=== PATIENT | male | born 1955 ===

== ENCOUNTER 2020-05-12 18:22 | Outpatient (REF) | payer OTHER, SELFPAY ==
[2020-05-12 22:06] LABS: HCT 45.7 % (40.0-50.0); HGB 14.2 g/dL (13.5-17.5); MCHC 31.1 % (32.0-36.0); MCV 93.5 fL (80-95); MPV 10.9 fL (8.0-11.0); Platelet Count 284 10^3/uL (130-400); RBC 4.89 10^6/uL (4.36-5.78); RDW-SD 48.5 fL
[2020-05-12 22:32] LABS: ALT 28 U/L (16-63); AST 19 U/L (15-37); Alkaline Phosphatase 64 U/L (46-116); Anion Gap 7.1 mmol/L (3-11); BUN 26 mg/dL (7-18); Bilirubin, Total 0.6 mg/dL (0.2-1.0); CO2 32.9 mmol/L (21.0-32.0); CREATININE 1.37 mg/dL (0.70-1.30); Calcium 9.5 mg/dL (8.5-10.1); Chloride 97 mmol/L (98-107); Estimated GFR 51.99 (mL/min/1.73m2); Glucose 88 mg/dL (74-106); Potassium 4.9 mmol/L (3.5-5.1); Sodium 137 mmol/L (136-145); Total Protein 7.3 g/dL (6.4-8.2)
== END 2020-05-12 18:42 ==
LOC: NCHCN 18:22
PROVIDERS: PCP Nurse Practitioner Community Health; Visit Provider Nurse Practitioner Community Health
DX: E11.9 Type 2 diabetes mellitus without complications (principal); I10 Essential (primary) hypertension; R23.3 Spontaneous ecchymoses; Z79.899 Other long term (current) drug therapy
CPT/HCPCS: 80053; 85027

== ENCOUNTER 2020-05-19 18:35 | Outpatient (REF) | payer OTHER, SELFPAY ==
[2020-05-19 22:03] LABS: Anion Gap 9.1 mmol/L (3-11); BUN 22 mg/dL (7-18); CO2 29.9 mmol/L (21.0-32.0); CREATININE 1.32 mg/dL (0.70-1.30); Calcium 9.6 mg/dL (8.5-10.1); Chloride 96 mmol/L (98-107); Estimated GFR 54.27 (mL/min/1.73m2); Glucose 127 mg/dL (74-106); Potassium 4.6 mmol/L (3.5-5.1); Sodium 135 mmol/L (136-145)
[2020-05-19 22:05] LABS: Abs Immature Grans 0.03 10^3/uL (0.0-0.06); Absolute Basophil Count 0.07 10^3/uL (0.0-0.2); Absolute Eosinophil Count 0.27 10^3/uL (0.0-0.7); Absolute Lymphocyte Count 0.95 10^3/uL (1.2-3.4); Absolute Neutrophil Count 7.28 10^3/uL (1.2-6.7); Basophils % 0.8; Eosinophils % 2.9; HCT 45.1 % (40.0-50.0); HGB 13.9 g/dL (13.5-17.5); Immature Grans % 0.3; Lymphocytes % 10.2; MCH 29.4 pg (27.0-33.0); MCHC 30.8 % (32.0-36.0); MCV 95.3 fL (80-95); MPV 10.9 fL (8.0-11.0); Monocytes % 7.5; Neutrophils % 78.3; Nucleated RBC 0 %; Platelet Count 270 10^3/uL (130-400); RBC 4.73 10^6/uL (4.36-5.78); RDW 14.1 % (11.8-14.1); RDW-SD 49.5 fL
== END 2020-05-19 18:55 ==
LOC: NCHCN 18:35
PROVIDERS: PCP Nurse Practitioner Community Health; Visit Provider Nurse Practitioner Community Health
DX: R23.3 Spontaneous ecchymoses (principal); R79.89 Other specified abnormal findings of blood chemistry; Z79.899 Other long term (current) drug therapy
CPT/HCPCS: 80048; 85025

== ENCOUNTER 2020-06-02 19:49 | Outpatient (REF) | payer OTHER, SELFPAY ==
--- NOTE | 2020-06-02 14:30 | SKI_PTH ---
PATIENT: Bola Lagunas LOC: [facility] U#:[id number] AGE/SX: 65/M ROOM: RE06/02/[address]: Rosemary Luna : 1955 BED: DIS: 06/02/2020 SPEC #: [id number] RECD: 06/03/20 12:31 STATUS: CHOLO PITTS #: [id number] CRISTI: 06/02/20 14:[address]: Rosemary Luna DEPT: Surgical Specimen RECD BY: Kyleigh Vázquez Tissues: 1 - SKIN BIOPSY(SHAVE/PUNCH) Procedures: SKIN LEVEL 4 Comments: [id number]
[2020-06-04 09:36] LABS: Cyclic Citrullinated Peptide <2.5 U/mL (<5.0)
[2020-06-08 12:44] LABS: dsDNA Ab, IgG <12.3 IU/mL (<30.0)
[2020-06-08 13:01] LABS: SS-A Antibody 1.6 Units (<20.0)
[2020-06-08 13:04] LABS: SS-B (La) Ab, IgG 1.5 Units (<20.0)
[2020-06-08 16:16] LABS: RNP Ab, IgG 1.8 Units (<20.0)
== END 2020-06-02 20:09 ==
LOC: NCHCN 19:49
PROVIDERS: PCP Nurse Practitioner Community Health; Visit Provider Nurse Practitioner Community Health
DX: R23.3 Spontaneous ecchymoses (principal); R76.0 Raised antibody titer; I78.1 Nevus, non-neoplastic
CPT/HCPCS: 86200; 86225; 86235; 88305

== ENCOUNTER 2021-07-22 23:12 | Outpatient (REF) | payer OTHER, SELFPAY ==
[2021-07-22 21:09] LABS: HCT 44.8 % (40.0-50.0); HGB 12.7 g/dL (13.5-17.5); MCH 25.1 pg (27.0-33.0); MCHC 28.3 % (32.0-36.0); MCV 88.7 fL (80-95); MPV 10.2 fL (8.0-11.0); Platelet Count 314 10^3/uL (130-400); RBC 5.05 10^6/uL (4.36-5.78); RDW 15.8 % (11.8-14.1); RDW-SD 50.1 fL; WBC 9.13 10^3/uL (4.4-10.8)
[2021-07-22 21:28] LABS: ALT 23 U/L (16-63); AST 17 U/L (15-37); Albumin 3.7 g/dL (3.4-5.0); Alkaline Phosphatase 70 U/L (46-116); Anion Gap 3.9 mmol/L (3-11); BUN 17 mg/dL (7-18); Bilirubin, Total 0.6 mg/dL (0.2-1.0); CO2 34.1 mmol/L (21.0-32.0); CREATININE 1.2 mg/dL (0.70-1.30); Calcium 9.1 mg/dL (8.5-10.1); Chloride 96 mmol/L (98-107); Glucose 75 mg/dL (74-106); Potassium 5.1 mmol/L (3.5-5.1); Sodium 134 mmol/L (136-145); TSH 1.35 uIU/mL (0.36-3.74); Total Protein 6.9 g/dL (6.4-8.2)
[2021-07-22 21:37] LABS: COMMENT (LAB VIEW ONLY) 34.97 mg/dL
== END 2021-07-22 23:13 | disposition home or self-care (01) ==
LOC: LBN 23:12
PROVIDERS: PCP Nurse Practitioner Community Health; Visit Provider Registered Nurse
DX: E11.9 Type 2 diabetes mellitus without complications (principal); I10 Essential (primary) hypertension; G47.33 Obstructive sleep apnea (adult) (pediatric); Z68.42 Body mass index [BMI] 45.0-49.9, adult
CPT/HCPCS: 80053; 85027; 82043; 82570; 84443

== ENCOUNTER 2021-10-20 18:22 | Outpatient (REF) | payer MEDICARE, SELFPAY ==
[2021-10-20 16:29] LABS: Hemoglobin A1C 6.7 % (<5.7)
[2021-10-20 16:38] LABS: Calculated LDL 84 mg/dL (<100); Cholesterol 152 mg/dL (<200); HDL Cholesterol 46 mg/dL (40-60); Triglyceride 110 mg/dL (<150)
== END 2021-10-20 18:23 | disposition home or self-care (01) ==
LOC: NCHCN 18:22
PROVIDERS: PCP Nurse Practitioner Community Health; Visit Provider Registered Nurse
DX: E11.9 Type 2 diabetes mellitus without complications (principal); E78.5 Hyperlipidemia, unspecified; J44.9 Chronic obstructive pulmonary disease, unspecified
CPT/HCPCS: 80061; 83036

== ENCOUNTER 2022-05-05 16:39 | Outpatient (REF) | payer MEDICARE, SELFPAY ==
[2022-05-05 14:25] LABS: HCT 43.9 % (40.0-50.0); HGB 14.1 g/dL (13.5-17.5); MCHC 32.1 % (32.0-36.0); MCV 97 fL (80-95); MPV 10.5 fL (8.0-11.0); Platelet Count 285 10^3/uL (130-400); RBC 4.55 10^6/uL (4.36-5.78); RDW 13.1 % (11.8-14.1); RDW-SD 47.1 fL; WBC 9.04 10^3/uL (4.4-10.8)
[2022-05-05 14:28] LABS: Anion Gap 8.3 mmol/L (3-11); BUN 23 mg/dL (7-18); CO2 29.7 mmol/L (21.0-32.0); CREATININE 1.2 mg/dL (0.70-1.30); Calcium 9.6 mg/dL (8.5-10.1); Chloride 98 mmol/L (98-107); Estimated GFR 65.87 (mL/min/1.73m2); Glucose 104 mg/dL (74-106); Potassium 4.7 mmol/L (3.5-5.1); Sodium 136 mmol/L (136-145)
--- OUTSIDE RECORDS SUMMARY | 2022-05-05 16:42 | XMS_ITS | CCD ---
:1955 Author Care Team Providers Name Role Phone LUCIANA ROBLES Attending Physician Unavailable Vital Signs Unknown or Not Available. Allergies Unknown or Not Available. Procedures Unknown or Not Available. History of Immunizations Unknown or Not Available. Problems Problem Code Start Date Resolved Date Status Diabetes 2 [id number] Active Hypertension 16930510 Active Obstructive sleep apnea 21320520 Acti ve COPD with exacerbation 704808326 Activ e Hypoxemia 794437833 Active Hypercapnia 17872823 Active Psoriasis 3097486 08/19/2021 Resolved Hyperlipidemia 02581054 08/19/2021 Resolved Ventral hernia 281906202 08/19/2021 Resolved Anemia 270343971 08/19/2021 Resolved Hydrocele 46781511 08/19/2021 Resolved Chronic obstructive pulmonary disease 83924610 Resolved Results BASIC METABOLIC PANEL (BMP) - Collect Da te/Time: 11/17/2020 13:05 Test Name Code Test Result Test Units Test Ref Range GLUCOSE 2345-7 128 mg/dL L=70 H=116 BUN 3094-0 21 mg/dL L=6 H=25 CREATININE 2160-0 1.02 mg/dL L=0.67 H=1.17 SODIUM SERUM 2951-2 135 mmol/L L=136 H=145 POTASSIUM SERUM 2823-3 4.5 mmol/L L=3.4 H=5.2 CHLORIDE SERUM 2075-0 98 mmol/L L=96 H=110 CARBON DIOXIDE (CO2) 2028-9 31 mmol/L L=22 H= 34 ANION GAP 69801-3 6.5 mmol/L CALCIUM SERUM 68662-1 9.5 mg/dL L=8.2 H=10.2 AGE 65 years eGFR (non-Afr.Amer.) 58198-4 73 mL/min eGFR (Afr-Samoan) 00475-7 88 mL/min Active Medications Medication Code Dose Units Frequency Route Modification Start Date/Time Ipratropium 6550780 1 UNIT FOUR TIMES A INHALATION 08/05 [place] DAY 12:27 rol Sulfate 0.5MG/3ML-3MG/ 3ML Inhalation Solution Prescription Detail 1 UNIT INHALATION FOUR TIME S A DAY predniSONE 10MG Oral Tablet 255314 2 TABLET DAILY ORAL 08/22/2021 12:25 Prescription Detail TAKE 2 TABLET ORAL DAILY X 3 DAYS THEN 1 TAB DAILY X 5 DAYS THEN STOP Aleve 220MG Oral 824001 440 MILLIGRAMS TWICE A DAY ORAL 08/22/2021 12:23 Tablet Prescription Detail TAKE 440 MILLIGRAMS ORAL TWI CE A DAY Atorvastatin Calcium 20MG 901021 20 MILLIGRAMS BEDTIME ORAL 08/22/2021 12:23 Oral Tablet Prescription Detail TAKE 20 MILLIGRAMS ORAL BEDT FANY Azithromycin 250MG Oral 581615 250 MILLIGRAMS DAILY ORAL 08/22/2021 12:23 Tablet Prescription Detail TAKE 250 MILLIGRAMS ORAL CAROLEE LY Dextromethorphan-guaiFENesin 158361 10 mL NEEDED ORAL 08/22/2021 10MG-100MG/5ML Oral Syrup EVERY 4 12:23 HOURS Prescription Detail TAKE 10 mL ORAL NEEDED EV SHAGGY 4 HOURS FOR COUGH Ferrous Sulfate 325 MG 751441 325 MG EVERY OTHER DAY ORAL 08/22/2021 12:23 Oral Tablet, Enteric Coated Prescription Detail TAKE 325 MG ORAL EVERY OTHER DAY glipiZIDE 5MG Oral 396694 5 MILLIGRAMS TWICE A DAY ORAL 08/22/2021 12:23 Tablet Prescription Detail TAKE 5 MILLIGRAMS ORAL TWICE A DAY Jardiance 10MG Oral Tablet 3218840 10 MILLIGRAMS DAILY ORAL 08/22/2021 12:23 Prescription Detail TAKE 10 MILLIGRAMS ORAL NOEMI Y Lisinopril/hydroCHLOROthiazide AvPak 132228 1 EACH DAILY ORA L 08/22/2021 12:23 20MG-12.5MG Oral Tablet Prescription Detail TAKE 1 EACH ORAL DAILY metFORMIN HCl 418406 9535 MILLIGRAMS TWICE A DAY ORAL 12:23 1000MG Oral Tablet Prescription Detail TAKE 1000 MILLIGRAMS ORAL TW ICE A DAY Nystatin 875506 1 EACH NEEDED TOPICAL 08/22/2021 12 :23 860914P/1GM EVERY 12 APPLICATION Topical HOURS application Powder Prescription Detail 1 EACH TOPICAL APPLICATION NEEDED EVERY 12 HOURS Omeprazole 20 MG Oral Tablet, [id number] 20 MG DAILY ORAL 08/22/2021 12:23 Delayed Release Prescription Detail TAKE 20 MG ORAL DAILY Symbicort 160/4.5 7309592 1 PUFF BID RESP INHALATION 12:23 160MCG-4.5MCG/1 Actu Inhalation Aerosol Liquid Prescription Detail 1 PUFF INHALATION BID RESP Combivent Respimat 9555415 1 SPRAY FOUR TIMES INHALATION 08/22/2021 100MCG-20MCG/Actuati A DAY 12: 22 Inhalation [place] Prescription Detail 1 SPRAY INHALATION FOUR GAYATRI ES A DAY Medications Administered During Visit Unknown or Not Available. Encounters Encounter Diagnosis Diagnosis Code Start Date Pure hyperglyceridemia [id number] 11/17/2020 Social History Smoking Status Code Start Date End Date Former smoker 1439353 Patient Decision Aids Unknown or Not Available. Discharge Instructions You were admitted to [facility] on 11/17/2020 12:57 with a principal diagnosis of Pure hyperglyceridemia You had the following tests done: BASIC METABOLIC PANEL (BMP) You were discharged from [facility] on 11/17/2020 12:57 Should you have any questions prior to d ischarge, please contact a member of your healthcare team. If you have left the ho spital and have any questions, please contact your primary care physician. Chief Complaint and Reason For Visit Unknown or Not Available. Function Status Unknown or Not Available. Plan of Care Unknown or Not Available. Referral/Transition of Care Unknown or Not Available.
--- OUTSIDE RECORDS SUMMARY | 2022-05-05 16:42 | XMS_ITS | CCD ---
:1955 Author Care Team Providers Name Role Phone CRISTY RODRIGUEZ MD Attending Physician Unavailable CRISTY RODRIGUEZ MD Er Physician 1 Unavailable Vital Signs Unknown or Not Available. Allergies Unknown or Not Available. Procedures Unknown or Not Available. History of Immunizations Unknown or Not Available. Problems Problem Code Start Date Resolved Date Status Diabetes 2 65498814 Active Hypertension 07268731 Active Obstructive sleep apnea 68232567 Acti ve COPD with exacerbation 313545504 Activ e Hypoxemia 001989837 Active Hypercapnia 76486637 Active Psoriasis 8640379 08/19/2021 Resolved Hyperlipidemia 72109725 08/19/2021 Resolved Ventral hernia 847541092 08/19/2021 Resolved Anemia 776921199 08/19/2021 Resolved Hydrocele 38007512 08/19/2021 Resolved Chronic obstructive pulmonary disease 06075811 Resolved Results BASIC METABOLIC PANEL (BMP) - Collect Da te/Time: 11/02/2020 16:00 Test Name Code Test Result Test Units Test Ref Range GLUCOSE 2345-7 95 mg/dL L=70 H=116 BUN 3094-0 18 mg/dL L=6 H=25 CREATININE 2160-0 1.06 mg/dL L=0.67 H=1.17 SODIUM SERUM 2951-2 129 mmol/L L=136 H=145 POTASSIUM SERUM 2823-3 4.2 mmol/L L=3.4 H=5.2 CHLORIDE SERUM 2075-0 94 mmol/L L=96 H=110 CARBON DIOXIDE (CO2) 2028-9 33 mmol/L L=22 H= 34 ANION GAP 38959-9 2.4 mmol/L CALCIUM SERUM 35422-3 9.7 mg/dL L=8.2 H=10.2 AGE 65 years eGFR (non-Afr.Amer.) 05424-2 70 mL/min eGFR (Afr-Ecuadorean) 72753-9 85 mL/min GLUCOSE FINGER/HEEL CAPILLARY - Collect Date/Time: 11/02/2020 16:05 Test Name Code Test Result Test Units Test Ref Range GLUCOSE CAP 88 mg/dL L=70 H=116 CBC W/ DIFFERENTIAL - Collect Date/Time: 11/02/2020 16:00 Test Name Code Test Result Test Units Test Ref Range WBC 6690-2 8.40 th/cmm L=5.00 H=10.00 NEUT % 69.9 % L=40.0 H=80.0 LYMPH % 16.3 % L=10.0 H=50.0 MONO % 42180-7 10.2 % L=2.0 H=12.0 EOS % 2.6 % L=0.0 H=8.0 BASO % 0.8 % L=0.0 H=3.0 IG % 2514-8 0.2 % L=0.0 H=1.1 NRBC % 98491-0 0.0 % L=0.0 H=0.0 NEUT abs count 751-8 5.9 th/cmm L=1.6 H=8.4 LYMPH abs count 731-0 1.4 th/cmm L=1.5 H=4.0 MONO abs count 742-7 0.9 th/cmm L=0.2 H=1.0 EOS abs count 711-2 0.2 th/cmm L=0.0 H=0.5 BASO abs count 704-7 0.1 th/cmm L=0.0 H=0.2 IG abs count 65243-6 0.0 th/cmm L=0.0 H=0.1 NRBC abs count 66349-2 0.0 mil/cmm L=0.0 H=0.0 RBC 789-8 4.85 mil/cmm L=4.30 H=6.20 HEMOGLOBIN 718-7 13.5 gm/dL L=13.0 H=17.0 HEMATOCRIT 4544-3 44 % L=45 H=52 MCV 787-2 91 fL L=82 H=92 MCH 785-6 27.8 pg L=27.0 H=31.0 MCHC 786-4 30.8 % L=32.0 H=36.0 RDW-SD 788-0 49.1 fL L=39.0 H=49.0 PLATELET COUNT 777-3 267 th/cmm L=150 H=450 TICK BORN DISEASE ANTIBODY PANEL - Colle ct Date/Time: 11/02/2020 16:00 Test Name Code Test Result Test Units Test Ref Range Ehrlichia Chaffeensis(HME) Ab, IgG 74099-9 <1:64 N/A <1:64 Anaplasmaphagocytophilum Ab,IgG,S 87804-9 <1:64 N/A <1:64 Babesia microti IgG Ab, S 62240-1 <1:64 N/A <1 :64 Lyme Disease Serology, S 51928-3 Negative N/A Neg ative Active Medications Medication Code Dose Units Frequency Route Modification Start Date/Time Ipratropium 9362649 1 UNIT FOUR TIMES A INHALATION 08/05 [place] DAY 12:27 rol Sulfate 0.5MG/3ML-3MG/ 3ML Inhalation Solution Prescription Detail 1 UNIT INHALATION FOUR TIME S A DAY predniSONE 10MG Oral Tablet 234204 2 TABLET DAILY ORAL 08/22/2021 12:25 Prescription Detail TAKE 2 TABLET ORAL DAILY X 3 DAYS THEN 1 TAB DAILY X 5 DAYS THEN STOP Aleve 220MG Oral 446414 440 MILLIGRAMS TWICE A DAY ORAL 08/22/2021 12:23 Tablet Prescription Detail TAKE 440 MILLIGRAMS ORAL TWI CE A DAY Atorvastatin Calcium 20MG 467159 20 MILLIGRAMS BEDTIME ORAL 08/22/2021 12:23 Oral Tablet Prescription Detail TAKE 20 MILLIGRAMS ORAL BEDT FANY Azithromycin 250MG Oral 263387 250 MILLIGRAMS DAILY ORAL 08/22/2021 12:23 Tablet Prescription Detail TAKE 250 MILLIGRAMS ORAL CAROLEE LY Dextromethorphan-guaiFENesin 489369 10 mL NEEDED ORAL 08/22/2021 10MG-100MG/5ML Oral Syrup EVERY 4 12:23 HOURS Prescription Detail TAKE 10 mL ORAL NEEDED EV SHAGGY 4 HOURS FOR COUGH Ferrous Sulfate 325 MG 235972 325 MG EVERY OTHER DAY ORAL 08/22/2021 12:23 Oral Tablet, Enteric Coated Prescription Detail TAKE 325 MG ORAL EVERY OTHER DAY glipiZIDE 5MG Oral 951238 5 MILLIGRAMS TWICE A DAY ORAL 08/22/2021 12:23 Tablet Prescription Detail TAKE 5 MILLIGRAMS ORAL TWICE A DAY Jardiance 10MG Oral Tablet 3249293 10 MILLIGRAMS DAILY ORAL 08/22/2021 12:23 Prescription Detail TAKE 10 MILLIGRAMS ORAL NOEMI Y Lisinopril/hydroCHLOROthiazide AvPak 513805 1 EACH DAILY ORA L 08/22/2021 12:23 20MG-12.5MG Oral Tablet Prescription Detail TAKE 1 EACH ORAL DAILY metFORMIN HCl 401002 3027 MILLIGRAMS TWICE A DAY ORAL 12:23 1000MG Oral Tablet Prescription Detail TAKE 1000 MILLIGRAMS ORAL TW ICE A DAY Nystatin 954719 1 EACH NEEDED TOPICAL 08/22/2021 12 :23 835782T/1GM EVERY 12 APPLICATION Topical HOURS application Powder Prescription Detail 1 EACH TOPICAL APPLICATION NEEDED EVERY 12 HOURS Omeprazole 20 MG Oral Tablet, 52843476188 20 MG DAILY ORAL 08/22/2021 12:23 Delayed Release Prescription Detail TAKE 20 MG ORAL DAILY Symbicort 160/4.5 1008389 1 PUFF BID RESP INHALATION 12:23 160MCG-4.5MCG/1 Actu Inhalation Aerosol Liquid Prescription Detail 1 PUFF INHALATION BID RESP Combivent Respimat 4981875 1 SPRAY FOUR TIMES INHALATION 08/22/2021 100MCG-20MCG/Actuati A DAY 12: 22 Inhalation [place] Prescription Detail 1 SPRAY INHALATION FOUR GAYATRI ES A DAY Medications Administered During Visit Unknown or Not Available. 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 Discharge Instructions You were admitted to [facility] on 11/02/2020 15:51 with a principal diagnosis of Madison's palsy You had the following tests done: GLUCO SE FINGER/HEEL CAPILLARY BASIC METABOLIC PANEL (BMP) CBC W/ DIFFERENTIAL TICK BOR N DISEASE ANTIBODY PANEL You were discharged from [facility] on 11/02/2020 17:07 Should you have any questions prior to d ischarge, please contact a member of your healthcare team. If you have left the ho spital and have any questions, please contact your primary care physician. Chief Complaint and Reason For Visit Chief Complaint Date of Onset FACIAL SWELLING AND DROOPING Function Status Unknown or Not Available. Plan of Care Unknown or Not Available. Referral/Transition of Care Unknown or Not Available.
== END 2022-05-05 16:40 | disposition home or self-care (01) ==
LOC: NCHCN 16:39
PROVIDERS: PCP Nurse Practitioner Community Health; Visit Provider Registered Nurse
DX: I10 Essential (primary) hypertension (principal); D64.9 Anemia, unspecified
CPT/HCPCS: 80048; 85027

== ENCOUNTER 2023-03-26 20:43 | Outpatient (REF) | payer MEDICARE, SELFPAY ==
[2023-03-26 21:55] LABS: HCT 45.7 % (40.0-50.0); MCHC 32.8 % (32.0-36.0); MCV 97 fL (80-95); MPV 10.5 fL (8.0-11.0); Platelet Count 286 10^3/uL (130-400); RBC 4.69 10^6/uL (4.36-5.78); RDW 13.2 % (11.8-14.1); RDW-SD 47.2 fL; WBC 7.31 10^3/uL (4.4-10.8)
[2023-03-26 22:04] LABS: Anion Gap 6.9 mmol/L (3-11); BUN 18 mg/dL (7-18); CO2 27.1 mmol/L (21.0-32.0); CREATININE 1.3 mg/dL (0.70-1.30); Calcium 10.2 mg/dL (8.5-10.1); Chloride 102 mmol/L (98-107); Estimated GFR 59.47 (mL/min/1.73m2); Glucose 165 mg/dL (74-106); Potassium 4.2 mmol/L (3.5-5.1); Sodium 136 mmol/L (136-145)
[2023-03-27 17:48] LABS: COMMENT (LAB VIEW ONLY) 28.64 mg/dL; Microalb ug/mg Crea 97.1 ug/mg Cr
== END 2023-03-26 20:44 | disposition home or self-care (01) ==
LOC: NCHCN 20:43
PROVIDERS: PCP Nurse Practitioner Community Health; Visit Provider Registered Nurse
DX: D64.9 Anemia, unspecified (principal); E11.21 Type 2 diabetes mellitus with diabetic nephropathy
CPT/HCPCS: 80048; 85027; 82043; 82570

== ENCOUNTER 2023-06-25 18:42 | Outpatient (REF) | payer OTHER, SELFPAY ==
[2023-06-25 21:29] LABS: Hemoglobin A1C 6.9 % (<5.7)
== END 2023-06-25 18:43 | disposition home or self-care (01) ==
LOC: NCHCN 18:42
PROVIDERS: PCP Nurse Practitioner Community Health; Referring Provider Registered Nurse; Visit Provider Registered Nurse
DX: E11.21 Type 2 diabetes mellitus with diabetic nephropathy (principal)
CPT/HCPCS: 83036

== ENCOUNTER 2023-09-18 15:46 | Outpatient (REF) | payer OTHER, SELFPAY ==
[2023-09-18 21:29] LABS: Hemoglobin A1C 7.8 % (<5.7)
[2023-09-18 21:33] LABS: Anion Gap 7.1 mmol/L (3-11); BUN 20 mg/dL (7-18); CO2 28.9 mmol/L (21.0-32.0); CREATININE 1.2 mg/dL (0.70-1.30); Calcium 10.2 mg/dL (8.5-10.1); Calculated LDL 89 mg/dL (<100); Chloride 101 mmol/L (98-107); Cholesterol 165 mg/dL (<200); Estimated GFR 65.46 (mL/min/1.73m2); Glucose 118 mg/dL (74-106); HDL Cholesterol 54 mg/dL (40-60); Potassium 4.6 mmol/L (3.5-5.1); Sodium 137 mmol/L (136-145); Triglyceride 113 mg/dL (<150)
[2023-09-19 20:43] LABS: Parathyroid Hormone,Intact 34 pg/mL (19-88)
== END 2023-09-18 15:47 | disposition home or self-care (01) ==
LOC: NCHCN 15:46
PROVIDERS: PCP Nurse Practitioner Community Health; Visit Provider Family Medicine
DX: E78.5 Hyperlipidemia, unspecified (principal); E11.9 Type 2 diabetes mellitus without complications
CPT/HCPCS: 80048; 80061; 83036; 83970